=== PATIENT | female | born 1990 | race Two or more races ===

== ENCOUNTER 2021-11-18 08:25 | Observation (INO) | payer BC, OTHER ==
[2021-11-19] MEDS ORDERED: PREN-129 OR (08:46)
[2021-11-19] MEDS ORDERED: ACYC1CAP23 PO (08:49)
== END 2021-11-18 10:50 | disposition home or self-care (01) ==
LOC: LDRP 08:25
PROVIDERS: ADMIT Obstetrics & Gynecology; ATTEND Obstetrics & Gynecology
DX: O36.8330 Maternal care for abnormalities of the fetal heart rate or rhythm, third trimester, not applicable or unspecified (principal); O48.0 Post-term pregnancy; Z3A.40 40 weeks gestation of pregnancy
CPT/HCPCS: 59025; 76818; 81002; 94760; G0378

== ENCOUNTER 2021-11-19 06:40 | Observation (INO) | payer BC ==
[2021-11-19] MEDS ORDERED: PREN-129 OR (08:46)
[2021-11-19] MEDS ORDERED: ACYC1CAP23 PO (08:49)
== END 2021-11-19 08:58 | disposition still patient (30) ==
LOC: LDRP 06:40 → UNDOADMOB 06:40 → LDRP 07:01 → UNDODISOB 08:58
PROVIDERS: ADMIT Obstetrics & Gynecology; ATTEND Obstetrics & Gynecology
DX: O26.853 Spotting complicating pregnancy, third trimester (principal); O48.0 Post-term pregnancy; O42.92 Full-term premature rupture of membranes, unspecified as to length of time between rupture and onset of labor; Z3A.40 40 weeks gestation of pregnancy
CPT/HCPCS: 59025; 76818; 81002; 94760; G0378

== ENCOUNTER 2021-11-21 09:49 | Observation (INO) | payer BC ==
[~2021-11-21 09:49] MED LIST: ACYC1CAP23 PO; PREN-129 OR
== END 2021-11-21 11:25 | disposition home or self-care (01) ==
LOC: LDRP 09:49
PROVIDERS: ADMIT Obstetrics & Gynecology; ATTEND Obstetrics & Gynecology
DX: O48.0 Post-term pregnancy (principal); O42.92 Full-term premature rupture of membranes, unspecified as to length of time between rupture and onset of labor; Z3A.40 40 weeks gestation of pregnancy
CPT/HCPCS: 59025; 76818; 81002; 94760; G0378

== ENCOUNTER 2021-11-23 08:44 | Inpatient (IN) | payer BC ==
[~2021-11-23] VITALS: Ht 182.9 cm; Wt 105.7 kg
[2021-11-23] MEDS ORDERED: LIDOCAINE 2%HCL (LOCAL ANESTH.) INJ 10ml MDV IJ PRN (10:15)
[2021-11-23] MEDS ORDERED: DERMOPLAST 60ML BOTTLE TOP PRN (10:15)
[2021-11-23] MEDS ORDERED: PROMETHAZINE HCL 25 MG/ML 1ML IV PRN (10:15)
[2021-11-23] MEDS ORDERED: WITCH HAZEL-GLYCERIN PAD TOP PRN (10:15)
[2021-11-23] MEDS ORDERED: PHISODERM TOP SOLN 240ML BTL TOP PRN (10:15)
[2021-11-23] MEDS ORDERED: BUTORPHANOL TARTRATE 2 MG/1 ML VIAL IV PRN ×2 (10:15)
[2021-11-23 10:46] LABS: Basophils # (auto) 0 10 ^3/uL (0-0.2); Basophils % (auto) 0.5 % (0.0-2.0); Eosinophils # (auto) 0.2 10 ^3/uL (0-0.8); Eosinophils % (auto) 1.7 % (0.0-7.0); Hematocrit 36.8 % (36.0-46.0); Lymphocytes # (auto) 1.6 10 ^3/uL (0.4-5.4); Lymphocytes % (auto) 15.6 % (10.0-50.0); Mean Corpuscular Hemoglobin 29.7 pg (28.0-32.0); Mean Corpuscular Hgb Conc. 32.7 g/dL (32.0-36.0); Mean Corpuscular Volume 90.9 fL (80.0-100.0); Monocytes # (auto) 0.7 10 ^3/uL (0-1.3); Monocytes % (auto) 7.1 % (0.0-12.0); Neutrophils # (auto) 7.4 10 ^3/uL (1.6-8.6); Neutrophils % (auto) 75.1 % (37.0-80.0); Red Blood Cells 4.05 10^6/uL (4.0-5.20); Red Cell Distribution Width 13.3 % (11.8-14.3); White Blood Cell 9.9 10^3/uL (4.4-10.8)
[2021-11-23 10:50] LABS: Urine Bacteria FEW /hpf (None Seen); Urine Blood Negative /uL (Negative); Urine Specific Gravity 1.009 (1.001-1.035); Urine WBC 3 /hpf (0 - 5)
[2021-11-23 11:03] LABS: Albumin 2.8 g/dL (3.4-5.0); BUN/Creatinine Ratio 19.3; Calcium 8.9 mg/dL (8.5-10.1); INR 0.94 (0.9-1.15); Partial Thromboplastin Time 25.5 sec (23.6-33.0)
[2021-11-23 11:06] LABS: Bilirubin, Total 0.2 mg/dL (0.2-1.0); Total Protein 6.7 g/dL (6.4-8.2)
[2021-11-23 11:20] LABS: Alcohol, Urine < 3.0 mg/dL (0-10); Amphetamine Screen, Urine NEGATIVE (NEGATIVE); Barbiturate Scree,Urine NEGATIVE (NEGATIVE); Benzodiazephine Screen, Urine NEGATIVE (NEGATIVE); Cannabinoid Screen, Urine NEGATIVE (NEGATIVE); Cocaine Screen, Urine NEGATIVE (NEGATIVE); Opiate Scree,Urine NEGATIVE (NEGATIVE); Phencyclidine Screen, Urine NEGATIVE (NEGATIVE)
[2021-11-23] MEDS ORDERED: miSOPROStol 50 MCG per PRE-CUT 1/2 TAB PO PRN (11:30)
[2021-11-23] MEDS: SODIUM CHLORIDE 0.9% 1,000 ML IV SCH ×2 (11:36→21:21)
[2021-11-23] MEDS: miSOPROStol 50 MCG per PRE-CUT 1/2 TAB PO PRN ×2 (12:00→16:04)
[2021-11-23] MEDS ORDERED: ROPIVACAINE HCL 200 ML EPI SCH ×2 (20:45→22:00)
[2021-11-23] MEDS ORDERED: SODIUM CHLORIDE 0.9% 500 ML IV ONE (20:45)
[2021-11-23] MEDS ORDERED: LIDOCAINE HCL 2 %PF INJ 10ML AMP IJ ONE (20:45)
[2021-11-23] MEDS ORDERED: fentaNYL CITRATE 100 MCG/2 ML VL IV ONE (20:45)
[2021-11-23] MEDS ORDERED: ePHEDrine SULFATE 50 MG/ML AMP IV ONE (20:45)
[2021-11-23] MEDS ORDERED: NALOXONE HCL 0.4 MG/ML VIAL IV ONE (20:45)
[2021-11-24] MEDS ORDERED: LACT. RINGERS/OXYTOCIN 20UNITS 500 ML IV ONE ×2 (03:15→03:45)
[2021-11-24] MEDS ORDERED: SODIUM CHLORIDE 0.9% 300 ML IUPC ONE (03:15)
[2021-11-24] MEDS ORDERED: SODIUM CHLORIDE 0.9% 1,000 ML IUPC SCH (03:15)
[2021-11-24 05:06] LABS: RPR Non Reactive (Non Reactive)
[2021-11-24] MEDS ORDERED: ONDANSETRON ODT 4 MG TAB PO PRN (05:45)
[2021-11-24] MEDS ORDERED: ACETAMINOPHEN 325 MG TAB PO PRN (05:45)
[2021-11-24] MEDS ORDERED: PREN-129 OR (06:31)
[2021-11-24] MEDS ORDERED: DOCU100C10 PO (06:31)
[2021-11-24] MEDS ORDERED: IBUP800T26 PO (06:31)
[2021-11-24 06:56] VITALS: BP 120/88
[2021-11-24 09:04] VITALS: BP 108/61
[2021-11-24] MEDS: IBUPROFEN 800 MG TAB PO SCH ×3 (09:10→23:48)
[2021-11-24 13:34] VITALS: BP 113/63
[2021-11-24 14:54] VITALS: BP 108/62
[2021-11-24 19:00] VITALS: BP 108/65
[2021-11-24] MEDS ORDERED: DOCUSATE SOD 100 MG CAP PO SCH (22:00)
[2021-11-24 23:00] VITALS: BP 103/55
[2021-11-25 03:30] VITALS: BP 105/59
[2021-11-25] MEDS: IBUPROFEN 800 MG TAB PO SCH (05:47)
[2021-11-25 06:55] VITALS: BP 110/63
== END 2021-11-25 07:10 | disposition home or self-care (01) | DRG 806 ==
LOC: LDRP 08:44 → OBSVTOIN 09:56 → LDRP 09:57
PROVIDERS: ADMIT Obstetrics & Gynecology Obstetrics; ATTEND Obstetrics & Gynecology Obstetrics
PROC: 10E0XZZ Delivery of Products of Conception, External Approach (ICD-10-PCS; principal; 2021-11-24)
PROC: 3E0DXGC Introduction of Other Therapeutic Substance into Mouth and Pharynx, External Approach (ICD-10-PCS; 2021-11-24)
PROC: 3E0R3BZ Introduction of Anesthetic Agent into Spinal Canal, Percutaneous Approach (ICD-10-PCS; 2021-11-24)
PROC: 00HU33Z Insertion of Infusion Device into Spinal Canal, Percutaneous Approach (ICD-10-PCS; 2021-11-24)
PROC: 0HQ9XZZ Repair Perineum Skin, External Approach (ICD-10-PCS; 2021-11-24)
DX: O48.0 Post-term pregnancy (principal); O41.03X0 Oligohydramnios, third trimester, not applicable or unspecified; Z37.0 Single live birth; O71.4 Obstetric high vaginal laceration alone; Z20.822 Contact with and (suspected) exposure to COVID-19; O77.0 Labor and delivery complicated by meconium in amniotic fluid; O69.81X0 Labor and delivery complicated by cord around neck, without compression, not applicable or unspecified; Z3A.40 40 weeks gestation of pregnancy
CPT/HCPCS: 36415; 59025; 59409; 62282; 76818; 80053; 80307; 81001; 81002; 85025; 85610; 85730; 86592; 86850; 86900; 86901; 94760; 96360; 96361; 96366; G0378; J2001; J2590